=== PATIENT | male | born 1970 | race Caucasian/White ===

== ENCOUNTER 2018-08-22 17:20 | Emergency (ER) | payer OTHER ==
--- NOTE | 2018-08-22 17:54 | ED ---
Throat Pain/Nasal Congestion - HPI Summary HPI Summary: The patient is a 47 y/o M presenting to [facility] from [facility] with a chief complaint of sudden onset "sinus pressure" near the right eye starting today at 1430 while he was at work. He states, "Something let loose between the [right] faith and eyeball. The sensation was not a pop, but it felt unusual to him. He additionally c/o right-sided headache. Pt denies injury, or chance of penetrating trauma. He denies any changes in vision, including loss of vision and blurred vision, no scotoma. He has had changes in his vision before, but he notes that they were related to changes in BP as he is borderline hypertensive. He also noticed that after this occurred, he was going to the bathroom and washed his face, and the whites of his eyes seemed to be more bloodshot than they had been earlier in the day. After a few minutes, he returned to work and starting having episodes of a sensation similar to dizziness that would resolve itself once he focused. This occurred 2-3 times so far today. Currently, his pain is rated 5/10 in severity. He states his right eye feels " like there is a thumb on the eyeball, and there is pushing back on the socket. He notes that his cheeks are more red than usual today as well, and when he was trying to read, he became nauseous. He was on Metformin, but has stopped for the last 6 months due to family complications. PCP is Dr. Cohen. 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 He's had three major back surgeries. FHx of stroke in grandmother. Home medications and allergies reviewed. Home Medications Medication Instructions Recorded Confirmed Type Metformin HCl 1 tab PO BID 08/22/18 08/22/18 History - History of Current Complaint Chief Complaint: EDEyeProblem Time Seen by Provider: 08/22/18 17:40 Hx Obtained From: Patient, Family/Mechanical Test Technician - is present in ED with pt, [facility] Onset/Duration: Sudden Onset Severity: Moderate - Allergies/Home Medications Allergies/Adverse Reactions: Allergies Allergy/AdvReac Type Severity Reaction Status Date / Time No Known Allergies Allergy Verified 02/01/16 08:09 Home Medications: Home Medications Metformin HCl 1 tab PO BID 08/22/18 [History Confirmed 08/22/18] PMH/Surg Hx/FS Hx/Imm Hx Previously Healthy: No Endocrine/Hematology History: Reports: Hx Diabetes - stopped metformin in his own approx 6 months ago (02/2018) Cardiovascular History: Reports: Hx Hypertension Denies: Hx Pacemaker/ICD, Other Cardiovascular Problems/Disorders GI History: Denies: Other GI Disorders Musculoskeletal History: Reports: Hx Back Problems Denies: Other Musculoskeletal History Sensory History: Reports: Hx Contacts or Glasses Denies: Hx Hearing Aid Opthamlomology History: Reports: Hx Contacts or Glasses Neurological History: Denies: Other Neuro Impairments/Disorders Psychiatric History: Denies: Hx Panic Disorder - Surgical History Surgery Procedure, Year, and Place: 2 back surgeries-[facility] Hx Anesthesia Reactions: No Infectious Disease History: No Infectious Disease History: Denies: Traveled Outside the [place] in Last 30 Days - Family History Known Family History: Positive: Other - stroke in grandmother - Social History Occupation: Employed Full-time Lives: With Family Alcohol Use: None Substance Use Type: Reports: None Smoking Status (MU): Former Smoker Amount Used/How Often: PACK A DAY Have You Smoked in the Last Year: No Review of Systems Constitutional: Negative Positive: Other - eye pain, felt something give between faith and eyeball ENT: Negative Cardiovascular: Negative Respiratory: Negative Gastrointestinal: Negative Positive: no symptoms reported Musculoskeletal: Negative Positive: Other - face more flushed than usual Positive: Headache - right sided, same side as eye symptoms. Psychological: Normal All Other Systems Reviewed And Are Negative: Yes Physical Exam - Summary Physical Exam Summary: Appearance: well-appearing, moderate pain distress, obese, wears glasses, VA 20/ 13 bilat, corrected. Skin: Warm, color reflects adequate perfusion, dry Head: Flushed cheeks bilaterally consistent with rosacea, no evidence of periorbital redness, atraumatic Eyes: Conjunctiva with injection lateral lower aspect of sclera on right eye, no subconjunctival hemorrhage, no hyphema, pupils equal and reactive, 3mm. EOMI , no drainage, no exudate, pressure appears normal and equal bilaterally by palpation. Eye pain is not reproducible, "feels deeper". No periorbital redness. ENT: Normal inspection Neck: Supple, no nodes, no JVD Respiratory: Lungs clear, normal breath sounds, no respiratory distress Cardio: RRR, No murmur, pulses normal, brisk capillary refill Musculoskeletal: Strength Intact/ROM intact. Psychological: Normal Neuro: Alert, muscle tone normal, no focal deficit Triage Information Reviewed: Yes Vital Signs On Initial Exam: Initial Vitals Temp Pulse Resp BP Pulse Ox 97.8 F 97 18 140/97 95 08/22/18 17:24 08/22/18 17:24 08/22/18 17:24 08/22/18 17:24 08/22/18 17:24 Vital Signs Reviewed: Yes Diagnostics - Vital Signs Vital Signs Temp Pulse Resp BP Pulse Ox 08/22/18 17:34 97 23 139/80 96 08/22/18 17:33 98 18 95 08/22/18 17:24 97.8 F 97 18 140/97 95 - Laboratory Lab Statement: Any lab studies that have been ordered have been reviewed, and results considered in the medical decision making process. Re-Evaluation - Re-Evaluation First Eval Re-Evaluation Time: 18:50 Change: Unchanged Comment: I discussed consult with Dr. Kuhn with the patient. He will follow up with him tomorrow at 0900. EENT Course/Dx - Course Course Of Treatment: 47 yo M with sudden onset right eye pain and right sided headache at work, without change in vision, and good visual acuity presents to ED. Pt with hx DM, HTN, not currently on meds, mildly hypertensive in the ED. VA 20/13 bilaterally with glasses. Eye exam normal, except for mild injection of sclera right lower lateral eye. Care discussed with Dr. Kuhn, ophalmologist, who will see pt at 0900 tomorrow. Pt does not have scotoma or any other neurologic symptoms to suggest stroke. Dr. Kuhn concurs by phone, based on my presentation to him. - Differential Diagnoses Differential Diagnoses: Cellulitis, Cluster Headache, Corneal Abrasion, Detached Retina, Glaucoma, Hypertension, Periorbital/Orbital Cellulitis, Retinal Artery Occlusion, Sinusitis, Uveitis - Diagnoses Provider Diagnoses: Eye pain Discharge - Sign-Out/Discharge Documenting (check all that apply): Patient Departure - Patient will be discharged home. Patient Received Moderate/Deep Sedation with Procedure: No - Discharge Plan Condition: Stable Disposition: HOME Patient Education Materials: Eye Pain (ED) Forms: *Work Release Referrals: Quinn Kuhn MD [Medical Doctor] - 1 Day (See Dr. Kuhn in his office tomorrow (Friday) 08/23/18 at 0930 ) Giovani Cohen DO [Primary Care Provider] - 2 Days Additional Instructions: We spoke with Dr. Kuhn and he would like to evaluate you in the office tomorrow morning at 9:30 AM. Based on my presentation to him he does not feel anything that needs emergency evaluation tonight, but he would like to see you in the morning. You may use moisturizing drops to keep the eye comfortable overnight. Any you may take Tylenol for any discomfort. Please return to the emergency room if you have any new or worsening symptoms. - Billing Disposition and Condition Condition: STABLE Disposition: Home - Attestation Statements Document Initiated by Carine: Yes Documenting Scribe: Jenniffer Chino Provider For Whom Carine is Documenting (Include Credential): Dr. Yaneli Patterson MD Scribe Attestation: I, Jenniffer Chino, scribed for Dr. Yaneli Patterson MD on 08/24/18 at 2301. Scribe Documentation Reviewed: Yes Provider Attestation: The documentation as recorded by the Jenniffer matthews accurately reflects the service I personally performed and the decisions made by me, Dr. Yaneli Patterson MD Status of Scribsergo Document: Viewed
[2018-08-22 18:53] VITALS: BP 127/77
== END 2018-08-22 18:53 | disposition home or self-care (01) ==
LOC: ED 17:20
DX: H57.10 Ocular pain, unspecified eye (principal); R51 Headache; Z87.891 Personal history of nicotine dependence; E11.9 Type 2 diabetes mellitus without complications; I10 Essential (primary) hypertension
CPT/HCPCS: 99282